=== PATIENT | female | born 1990 | race Caucasian/White ===

== ENCOUNTER → 2020-01-27 10:11 | Outpatient (CLI) | payer OTHER, SELFPAY ==
[2020-01-27 11:56] LABS: HCG,Quantitative < 2 mIU/ml (0-5.42)
== END ==
PROVIDERS: Visit Provider Obstetrics & Gynecology
DX: Z32.00 Encounter for pregnancy test, result unknown (principal)
CPT/HCPCS: 36415; 84702

== ENCOUNTER → 2020-12-26 10:15 | Outpatient (CLI) | payer OTHER, SELFPAY ==
[2020-12-26 15:55] LABS: Basophils % 0.6 % (0.1-2.0); Eosinophils # 0.1 K/mm3 (0.0-0.4); Eosinophils % 1.8 % (0.1-12.0); Hematocrit 37.6 % (37.0-47.0); Hemoglobin 12.8 g/dL (12.2-16.2); Lymphocytes # 1.8 K/mm3 (0.7-4.5); Lymphocytes % 25.3 % (10-50); Mean Corpuscular HGB Conc 34.2 g/dL (31.8-35.4); Mean Corpuscular Hemoglobin 30.9 pg (27.0-31.2); Mean Corpuscular Volume 90.6 fl (81-99); Monocytes # 0.3 K/mm3 (0.1-1.0); Monocytes % 4.7 % (1.7-9.3); Neutrophils # 4.7 K/mm3 (1.8-7.8); Neutrophils % 67.6 % (37.0-80.0); Platelet Count 410 K/mm3 (142-424); Red Blood Count 4.15 M/mm3 (4.20-5.40); Red Cell Distribution Width 12.8 % (11.5-17.5)
[2020-12-26 15:58] LABS: Chloride 103 mmol/L (98-107); Sodium 138 mmol/L (136-145)
[2020-12-26 15:59] LABS: Potassium 4.1 mmoL/L (3.5-5.1)
[2020-12-26 16:01] LABS: Alanine Aminotransferase 12 U/L (12-78); Albumin Level 4.5 g/dl (3.5-5.0); Albumin/Globulin Ratio 1.8 (1.1-1.8); Alkaline Phosphatase 53 U/L (38-126); Anion Gap 11.1 mEq/L (5-15); Aspartate Amino Transferase 18 U/L (14-36); Bilirubin,Total 1.5 mg/dl (0.2-1.3); Blood Urea Nitrogen 8 mg/dl (7-17); Calcium 9.1 mg/dl (8.4-10.2); Carbon Dioxide 28 mmol/L (22.0-30.0); Estimated Glomerular Filt Rate 116 ml/min (>60); GFR (African American) 140 ML/MIN (>60); Globulin 2.5 g/dL (1.3-3.2); Glucose 82 mg/dl (74-100); HDL Cholesterol 38 mg/dl (40-60); Lipase 37 U/L (23-300)
[2020-12-26 16:02] LABS: Chol/HDL Ratio 3.4 (1-3.5); Cholesterol 129 mg/dl (140-200); Triglycerides 113 mg/dl (30-150); VLDL Cholesterol 23 mg/dL (0-40)
[2020-12-26 16:15] LABS: Direct LDL Cholesterol 73.92 mg/dL (100-129)
[2020-12-26 16:19] LABS: Triiodothryronine (T3) Uptake 37 % (23.5-40.5)
[2020-12-26 16:20] LABS: Free Thyroxine Index 3.4 ug/dL (5.93-13.13); T4 (Thyroxine) 9.3 ug/dl (5.53-11.0)
== END ==
PROVIDERS: Visit Provider Nurse Practitioner Family
DX: R10.2 Pelvic and perineal pain (principal); R10.30 Lower abdominal pain, unspecified; R19.7 Diarrhea, unspecified; R53.83 Other fatigue; Z13.220 Encounter for screening for lipoid disorders
CPT/HCPCS: 36415; 80053; 80061; 83036; 83690; 84436; 84443; 84479; 85025

== ENCOUNTER → 2020-12-27 07:30 | Outpatient (CLI) | payer OTHER, SELFPAY ==
[2020-12-28 08:54] LABS: Adenovirus F 40/41, stool Not Detected (NotDetected); Astrovirus Not Detected (NotDetected); Campylobacter Not Detected (NotDetected); Clostridium Difficile A/B, PCR Not Detected (NotDetected); Cryptosporidium Not Detected (NotDetected); Cyclospora Cayetanesis Not Detected (NotDetected); Entamoeba histolytica Not Detected (NotDetected); Enteroaggregative E coli Not Detected (NotDetected); Enteropathogenic E coli Not Detected (NotDetected); Enterotoxigenic E coli Not Detected (NotDetected); Giardia lamblia Not Detected (NotDetected); Norovirus Not Detected (NotDetected); Plesimonas Shigalloides, PCR Not Detected (NotDetected); Rotavirus A Not Detected (NotDetected); Salmonella, PCR Not Detected (NotDetected); Sapovirus Not Detected (NotDetected); Shiga-like toxin E coli Not Detected (NotDetected); Shigella Enterovasive E coli Not Detected (NotDetected); Vibrio Cholerae Not Detected (NotDetected); Vibrio, PCR Not Detected (NotDetected); Yersinia Entercolitica, PCR Not Detected (NotDetected)
== END ==
PROVIDERS: Visit Provider Nurse Practitioner Family
DX: R19.7 Diarrhea, unspecified (principal); R10.30 Lower abdominal pain, unspecified; R11.0 Nausea
CPT/HCPCS: 87507

== ENCOUNTER 2022-01-05 12:09 | Emergency (ER) | payer BC, OTHER, SELFPAY ==
[2022-01-05 12:26] VITALS: BP 132/84; PULSE 89; RESP 18; TEMP 37.1; O2SAT 100; BMI 30.1
--- NOTE | 2022-01-05 13:01 | HMH.EDUTC ---
[facility] [place] Impression: Infected blister of toe of left foot Qualifiers: Encounter type: initial encounter Qualified Code(s): S90.425A - Blister (nonthermal), left lesser toe(s), initial encounter Disposition: Home, Self-Care Condition on Discharge: Good Instructions: Cephalexin, Mupirocin Additional Instructions: Clean area well with antibacterial soap and water and pat dry Take medication as prescribed Follow up with Family Doctor if no improvement or any worsening of symptoms Return if needed Straight to ER if any life threatening symptoms Prescriptions: Mupirocin [Bactroban 2% Ointment 22gm tube] 1 applicatio TP TID 10 Days #22 gm Transmission Status: Pending to [id number] cephALEXin [cephALEXin 500mg capsule*] 500 mg PO Q8H 7 Days #21 cap Transmission Status: [id number] Referrals: Riaz Starr MD [Primary Care Provider] - As needed Time of Disposition: 13:05 Medical Decision Making - Dusty Inquiry Pt receiving controlled substance: No Dusty was queried for this patient: No Vital Signs: 01/05/22 12:26 Temperature 98.7 F Temperature Source Oral Pulse Rate [Left Radial] 89 Respiratory Rate 18 Blood Pressure [Right Arm] 132/84 Blood Pressure Mean [Right Arm] 100 02 Sat by Pulse Oximetry 100 Medical Decision Narrative: medication verified per pharmacy that medication was baby safe [facility] [place] - General Stated complaint: pain in toe Time Seen by Provider: 01/05/22 13:01 Source of Information: Patient Description of Symptoms (Recalled from Triage Doc. by RN): patient comes in with complaints of left second toe. patient states that it began 2 weeks ago, and she continued to mess with it and it has gotten worse HEENT Symptoms (Recalled from RN notes): No Resp Symptoms (Recalled from RN notes): No Skin Symptoms (Recalled from RN notes): Yes MS Symptoms (Recalled from RN notes): No Functional Status (Recalled from RN notes): wnl - History of Present Illness Provider Complaint: Patient states that she has a blister like place on her left second toe and she has been messing with it trying to get it to pop and she thinks she has got it infected States that she is 29wks OB so they told her to come in and get it checked out - Related Data Previous Rx's Medication Instructions Recorded prenat.vits,felecia,[id number]-[id number] 1 tab PO DAILY #30 tab 04/06/20 Mupirocin [Bactroban 2% Ointment 1 applicatio TP TID 10 Days #22 gm 01/05/22 22gm tube] cephALEXin [cephALEXin 500mg 500 mg PO Q8H 7 Days #21 cap 01/05/22 capsule*] Allergies Allergy/AdvReac Type Severity Reaction Status Date / Time NO KNOWN ALLERGIES Allergy Uncoded 04/06/20 08:52 - Worker's Comp Is this a Worker's Comp case?: No [facility] History - Hepatitis A Screen Attestation statement:: This patient has been screened for Hepatitis A risk factors. I have reviewed the patient's past medical history: Yes Medical History: Reports:: Migraine Other Surgeries: Yes: , Other Amputation: No Fractures: No Comment: 2008- Primary . 2010- Exp. Lap, P/w, ovarian cystX with f/s - Social History Smoking Status: Never smoker Alcohol Intake: never Alcohol Intake Frequency:: other Substance Use Type: denies use Occupational Status: employed Family Hx:: Diabetes ROS Obtained: Yes All systems reviewed & no additional complaints, Yes Systems reviewed as appropriate & no additional complaints - Constitutional Constitutional: Reports system reviewed and no additional complaints, except as docu, Denies body ache, Denies chills, Denies fever(s) - Integumentary/Breasts Skin/Breast: Reports system reviewed and no additional complaints, except as docu Comments: redness and mild swelling to left second toe Physical Exam - General General appearance: alert, in no apparent distress - Respiratory Respiratory exam: Present: normal lung sounds bilaterally. Absent: resp
[2022-01-05 13:09] VITALS: BP 132/84; PULSE 89; RESP 18; TEMP 37.1
== END 2022-01-05 13:11 | disposition home or self-care (01) ==
PROVIDERS: Emergency Provider Nurse Practitioner; PCP Internal Medicine Adolescent Medicine
DX: S90.425A Blister (nonthermal), left lesser toe(s), initial encounter (principal); Z3A.31 31 weeks gestation of pregnancy
CPT/HCPCS: 99212; G0463